=== PATIENT | female | born 1960 | race Hispanic/Latino ===

== ENCOUNTER 2022-08-27 10:30 | Emergency (ER) | payer BC ==
[~2022-08-27] VITALS: Ht 149.9 cm; Wt 69.7 kg
[~2022-08-27 10:30] MED LIST: SIMVASTATIN10 MG PO
[2022-08-27] MEDS ORDERED: IOPAMIDOL 370 MG/ML 100 ML INFUS..BTL INJ ONE (11:06)
[2022-08-27] MEDS ORDERED: DICYCLOMINE HCL20 MG PO (11:50)
== END 2022-08-27 12:01 | disposition home or self-care (01) ==
LOC: FSED 10:38
DX: R10.12 Left upper quadrant pain (principal); R14.0 Abdominal distension (gaseous)
CPT/HCPCS: 74177; 80053; 81003; 82553; 84484; 85025; 93005; 99284; Q9967

== ENCOUNTER 2024-06-14 02:40 | Emergency (ER) | payer BC ==
[~2024-06-14] VITALS: Ht 149.9 cm; Wt 69.4 kg
[~2024-06-14 02:40] MED LIST changes: +DICYCLOMINE HCL20 MG PO
[2024-06-14 02:49] VITALS: TEMP 98.4
[2024-06-14 03:11] LABS: BASOPHILS # (AUTO) 0.1 (0.0-0.1); BASOPHILS % 0.6 % (0.0-1.0); EOSINOPHILS # (AUTO) 0.1 (0.0-0.4); HEMATOCRIT 43.5 % (34.2-44.1); HEMOGLOBIN 13.8 g/dL (12.0-16.0); LYMPHOCYTES # (AUTO) 3.5 (1.0-3.2); LYMPHOCYTES % 39.9 % (18.0-39.1); MEAN CORPUSCULAR HEMOGLOBIN 29.5 pg (28-32); MEAN CORPUSCULAR HGB CONC 31.7 g/dL (31-35); MEAN CORPUSCULAR VOLUME 92.9 fL (81-99); MONOCYTES # (AUTO) 0.4 (0.2-0.8); MONOCYTES % 4.4 % (4.4-11.3); NEUTROPHILS # (AUTO) 4.8 (2.1-6.9); NEUTROPHILS % 53.5 % (38.7-80.0); PLATELET COUNT 355 x10e3/uL (140-360); RED BLOOD COUNT 4.68 x10e6/uL (3.6-5.1); RED CELL DISTRIBUTION WIDTH 12.9 % (11.7-14.4); WHITE BLOOD COUNT 8.87 x10e3/uL (4.8-10.8)
[2024-06-14 03:19] LABS: BILIRUBIN,URINE SMALL (NEGATIVE); CLARITY,URINE CLEAR (CLEAR); COLOR,URINE YELLOW (YELLOW); GLUCOSE, URINE NEGATIVE (NEGATIVE); KETONES,URINE TRACE (NEGATIVE); LEUKOCYTE ESTERASE ,URINE NEGATIVE (NEGATIVE); NITRITE,URINE NEGATIVE (NEGATIVE); PH,URINE 6 (5 - 7); PROTEIN,URINE DIPSTICK 2+ (NEGATIVE); URINE UROBILINOGEN 1 mg/dL (0.2 - 1)
[2024-06-14 03:20] LABS: BACTERIA,URINE MANY /HPF; EPITHELIAL CELLS,URINE MODERATE /LPF; RBC,URINE >50 /HPF (0-5); WBC,URINE (MAN) 0-5 /HPF (0-5)
[2024-06-14] MEDS: ONDANSETRON HCL INJ 2MG/ML 2ML 2 MG/ML VIAL IV STA (03:20)
[2024-06-14 03:21] LABS: CALCIUM OXALATE CRYSTALS,UR MODERATE (FEW)
[2024-06-14 03:23] LABS: ALBUMIN 4.1 g/dL (3.5-5.0); ALBUMIN/GLOBULIN RATIO 1.2 (0.8-2.0); BILIRUBIN,TOTAL 0.3 mg/dL (0.2-1.2); CALCIUM 9.9 mg/dL (8.4-10.2); CREATININE, SERUM 0.74 mg/dL (0.57-1.11); TOTAL PROTEIN 7.5 g/dL (6.5-8.1)
[2024-06-14] MEDS: KETOROLAC TROMETHAMINE 30 MG/ML VIAL IV STA (03:23)
[2024-06-14] MEDS: HYDROCODONE/APAP 7.5MG-325MG 1 EA TAB PO ONE (04:10)
[2024-06-14 04:45] VITALS: PULSE 63; RESP 16; O2SAT 98
[2024-06-14] MEDS ORDERED: KETOROLAC TROME10 MG PO (04:51)
[2024-06-14] MEDS ORDERED: CEFDINIR300 MG PO (04:51)
[2024-06-14] MEDS ORDERED: FLOMAX0.4 MG PO (04:51)
[2024-06-14] MEDS ORDERED: ONDANSETRON ODT4 MG SL (04:51)
[2024-06-14] MEDS ORDERED: HYDROCODON-ACE1 EA12 PO (04:51)
== END 2024-06-14 05:07 | disposition home or self-care (01) ==
LOC: ER 02:45
DX: R10.30 Lower abdominal pain, unspecified (principal); N13.2 Hydronephrosis with renal and ureteral calculous obstruction; R11.2 Nausea with vomiting, unspecified; E11.65 Type 2 diabetes mellitus with hyperglycemia; E78.5 Hyperlipidemia, unspecified; E78.00 Pure hypercholesterolemia, unspecified; K76.0 Fatty (change of) liver, not elsewhere classified; Z98.84 Bariatric surgery status
CPT/HCPCS: 36415; 74176; 80053; 81001; 85025; 99284; J1885; J2405